=== PATIENT | male | born 1975 | race African-American/Black ===

== ENCOUNTER 2025-02-13 12:36 | Emergency (ER) | payer SELFPAY ==
[2025-02-13 12:53] VITALS: BP 163/97
[2025-02-13 13:09] LABS: % Basophils 0.4 % (0-2); % Eosinophils 1.9 % (0-6); % Immature Granulocytes 0.3 % (0-0.5); % Lymphocytes 21.5 % (20.5-51.1); % Monocytes 5.3 % (1.7-9.3); % Neutrophils 70.6 % (42.2-75.2); Absolute Eosinophils 0.1 10^3/uL (0-0.7); Absolute Lymphocytes 1.5 10^3/uL (1.2-3.4); Absolute Monocytes 0.4 10^3/uL (0.1-0.6); Absolute Neutrophils 4.9 10^3/uL (1.4-6.5); Hemoglobin 13.3 g/dL (13.0-18.0); Mean Corp Hgb Conc. 33.3 g/dL (33.0-37.0); Mean Corpuscular Hgb 30.9 pg (27.0-31.0); Mean Corpuscular Volume 92.8 fL (80.0-94.0); Mean Platelet Volume 8.6 fL (7.4-10.4); Nucleated Red Blood Cells % 0 % (-); Platelet Count 355 10^3/uL (130-400); Red Blood Cell Count 4.31 10^6/uL (4.70-6.10); Red Cell Dist. Width 12.7 % (11.5-14.5)
[2025-02-13 13:28] LABS: ALT (SGPT) 16 U/L (0-50); AST (SGOT) 19 U/L (17-59); Albumin 4.7 g/dl (3.5-5.0); Alkaline Phosphatase 66 U/L (38-126); Blood Urea Nitrogen 12 mg/dl (9-20); Calcium 9.1 mg/dl (8.4-10.2); Carbon Dioxide 26 mmol/L (22-30); Chloride 106 mmol/L (98-107); Glucose 125 mg/dl (70-99); Potassium 4.5 mmol/L (3.5-5.1); Sodium 140 mmol/L (135-145); Total Bilirubin 0.6 mg/dl (0.2-1.3); Total Protein 7.3 g/dl (6.3-8.2); eGFR > 60.00
--- NOTE | 2025-02-13 14:35 | ED.GENMED ---
History of Present Illness
General
Chief Complaint: Flank Pain
Time Seen by Provider: 02/13/25 14:07
History of Present Illness
History of Present Illness:
49-year-old male presents the emergency department for evaluation of right flank pain. He has a history of recurrent kidney stones and his previous required ureteral stent surgery. 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
has been in numerous different states receiving care. Most recently was in [place] where the ureteral stent was placed. He was seen at [facility] yesterday for the symptoms at which time he had a CT scan with IV contrast showing no
kidney stone but numerous right renal cysts. He was given oxycodone with modest improvement. He reports that when the pain increases he has radicular symptoms into the right leg. Denies any loss of bladder or bowel function. No hematuria or
dysuria. No recent fevers or chills.
Review of Systems
Review of Systems
Allergies reviewed?: Yes
All Other Systems: ROS reviewed and negative except as documented in HPI and ROS
Phy Exam
Physical Exam
Physical Exam:
GEN: Well appearing, NAD, WDWN
HEENT: Oral mucosa moist, no scleral icterus
Cardiac: Regular rate
Lung: No respiratory distress, no tachypnea
MSK: No gross deformity or injuries
Skin: Good color, no pallor or jaundice, no rashes
Neuro: AO x3, moves all extremities freely
Psych: Calm, cooperative
Course
Orders/Labs/Results
Orders:
Orders
02/13/25 13:02
Complete Blood Count/With Diff Urgent
Comprehensive Metabolic Panel Urgent
02/13/25 14:34
Oxycodone [Roxicodone] 5 mg PO NOW STA
02/13/25 14:40
Celecoxib [Celebrex] 200 mg PO NOW STA
02/13/25 16:02
Urinalysis Reflex To Culture Urgent
Date Specimen was Collected: 02/13/25
Time Specimen was Collected: 12:57
Urine Microscopic Reflex Cult Urgent
Abnormal Lab Results
02/13/25 02/13/25
13:02 16:02
RBC 4.31 L 10^6/uL
(4.70-6.10)
Glucose 125 H mg/dl
(70-99)
Ur Occult Blood Reflex 2+ A
(Negative)
Urine RBC 7-10 A /HPF
(0-2)
Urine Bacteria (Reflex) Few A
(Negative)
02/13/25 13:02
02/13/25 13:02
Vital Signs
Initial and Last Documented VS:
Initial Vital Signs
Temp Pulse Resp BP Pulse Ox
97.6 F 84 18 163/97 98
02/13/25 12:53 02/13/25 12:53 02/13/25 12:53 02/13/25 12:53 02/13/25 12:53
Last Documented Vital Signs
Temp Pulse Resp BP Pulse Ox
97.6 F 77 15 132/88 99
02/13/25 12:53 02/13/25 15:21 02/13/25 15:21 02/13/25 15:21 02/13/25 15:21
MDM/Problems Addressed
MDM/Problems Addressed:
I was able to obtain records from [facility] that show the patient had normal labs, a CT scan with IV contrast showing no acute intra-abdominal pathology, no concern for kidney stone, incidentally noted several right renal cyst.
Urinalysis was bland. He was prescribed tamsulosin, oxycodone, and ibuprofen. He has not yet picked up these prescriptions. He is also noted to have hematuria again today, do not see an indication for repeat imaging. He does note some radicular
symptoms into the right leg which would suggest a lumbar disc disease as the etiology to his symptoms. Ultimately do not see indication for repeat imaging at this time. Recommend outpatient primary care follow-up so further evaluate the low back,
will trial a course of steroids
*Critical Care Note
Total Time (30-74mins, 75-104mins- exclusive of procedures): Not Applicable
ED Attending Note
-
Portions of this chart may have been created with voice recognition software.� Occasional wrong word or��sound alike� substitutions may have occurred due to the inherent limitations of voice recognition software.
Discharge Plan
Departure
Patient Disposition: Home (Routine Discharge)
Date of Disposition: 02/13/25
Time of Disposition: 16:34
Patient with high blood pressure during this ER visit?: No
Discharge Problem:
Acute right flank pain
Instructions: Herniated Disc (DC)
Prescriptions:
New
methylprednisolone [Medrol (Jeffery)] 4 mg tablets,dose pack
See Rx Instructions .ROUTE .COMPLEX Qty: 21 0RF
Rx Instructions:
for 6 days
Referrals:
NONE,* [Family Provider] -
Activity Restrictions/Additional Instructions:
Do not take the tamsulosin or ibuprofen you are prescribed yesterday. You may use the oxycodone for pain. Try the steroid pack I prescribed you as your symptoms are suspicious for a lumbar disc disease as opposed to a kidney problem. As we
discussed your CT scan yesterday showed small benign kidney cyst but these are not causing your pain. There is no evidence for a kidney stone on imaging yesterday. Please follow-up with the below listed primary care clinic to establish local
primary care and talk about obtaining an outpatient MRI of your low back
[facility]
[address]
[place] [address]
[phone]
Interventions
Interventions:
*Risk Screen - Suicide Last Done: 02/13/25 12:53
*General Assessment Last Done: 02/13/25 12:53
*Neglect/Abuse Screening Last Done: 02/13/25 12:53
*ED- Fall Risk Assessment Last Done: 02/13/25 14:42
BF-Dzdzbd-Lhjwmeladl Assessment Last Done: 02/13/25 14:41
ED-Male Genitourinary Assessment Last Done: 02/13/25 14:41
Discharge Date and Time
Print Language: DUTCH
[2025-02-13] MEDS: ROXICODONE 5 MG PO (14:42)
[2025-02-13] MEDS: CELEBREX 200 MG PO (15:18)
[2025-02-13 15:21] VITALS: BP 132/88; BMI 34.5
[2025-02-13 16:09] LABS: Urine Albumin Negative (Neg - Trace); Urine Bilirubin Negative (Negative); Urine Character Clear (Clear); Urine Color Yellow; Urine Glucose Negative (Negative); Urine Ketone Negative (Negative); Urine Leukocyte Negative (Negative); Urine Nitrite Negative (Negative); Urine Occult Blood 2+ (Negative); Urine Urobilinogen Negative (Neg - 1+)
[2025-02-13 16:19] LABS: Urine Bacteria Few (Negative); Urine White Cell 0-2 /HPF (0-5)
== END 2025-02-13 17:08 | disposition home or self-care (01) ==
LOC: EMR 12:36
PROVIDERS: Emergency Medicine; EMERGENCY PHYSICIAN Emergency Medicine
DX: R10.9 Unspecified abdominal pain (principal)
CPT/HCPCS: 99283; 80053; 81003; 81015; 85025